=== PATIENT | male | born 1995 | race Caucasian/White ===

== ENCOUNTER 2020-07-03 20:11 | Observation (INO) ==
[2020-07-03] MEDS ORDERED: Tdap (Boostrix) Vaccine 0.5 ML SYRINGE IM ONE (20:52)
[2020-07-03 21:17] LABS: Basophils % 0.3 %; Eosinophils # 0.4 K/mcL (0.0-0.6); Eosinophils % 4.7 %; Hematocrit 40.2 % (37.5-50.1); Immature Granulocytes % 0.3 % (0-4); Lymphocytes % 26.1 %; Mean Corpuscular HGB Conc 32.3 g/dL (31.6-35.5); Mean Corpuscular Hemoglobin 29.4 pg (28.0-33.3); Mean Platelet Volume 9.3 fL (9.4-12.4); Monocytes # 0.7 K/mcL (0.0-1.3); Monocytes % 9.5 %; Neutrophils # 4.5 K/mcL (1.6-8.9); Platelet Count 231 K/mcL (140-400); Red Blood Count 4.42 M/mcL (4.19-5.50); Red Cell Distribution Width 11.9 % (11.5-14.5); Segmented Neutrophils % 59.1 %; White Blood Count 7.7 K/mcL (4.3-11.1)
[2020-07-03 21:39] LABS: Alanine Aminotransferase 286 Units/L (7-52); Albumin 4.1 g/dL (3.5-5.7); Albumin/Globulin Ratio 1.3 (1.1-2.2); Alkaline Phosphatase 124 Units/L (34-104); Aspartate Amino Transferase 194 Units/L (13-39); BUN/Creatinine Ratio 13 (6-26); Bilirubin,Direct 0.2 mg/dL (0.0-0.2); Bilirubin,Indirect 0.4 mg/dL (0.0-1.0); Bilirubin,Total 0.6 mg/dL (0.3-1.0); Blood Urea Nitrogen 10 mg/dL (6-20); C-Reactive Protein 42 mg/L (Less than 10); Calcium 9.1 mg/dL (8.6-10.3); Carbon Dioxide 31 mEq/L (23-29); Chloride 101 mEq/L (98-107); Globulin 3.2 g/dL (2.4-3.5); Glucose 83 mg/dL (70-105); Osmolality,Calculated 286 (280-300); Potassium 3.6 mEq/L (3.5-5.1); Sodium 139 mEq/L (136-145); Total Protein 7.3 g/dL (6.4-8.9); Troponin I < 0.03 ng/mL (< 0.04); Uric Acid 4.9 mg/dL (2.3-7.6); eGFR For African Americans > 60 (> 60); eGFR For Non-African Americans > 60 (> 60)
[2020-07-03] MEDS ORDERED: Isovue-370 500 ML BOTTLE IVP ONE (21:41)
[2020-07-03 21:53] LABS: Thyroid Stimulating Hormone 1.031 mcIU/mL (0.340-5.600)
[2020-07-03 22:50] LABS: Hepatitis B Surface Antigen Nonreactive (Nonreactive)
[2020-07-03 23:19] LABS: Hepatitis B Core IgM Nonreactive (Nonreactive)
[2020-07-03 23:20] LABS: Hepatitis A Antibody IgM Nonreactive (Nonreactive)
[2020-07-04] MEDS ORDERED: cefTRIAXone 1,000 MG in Water for inj. (sterile) 10 ML IVP ONE (00:28)
[2020-07-04] MEDS ORDERED: Furosemide 20 MG/2 ML VIAL IVP ONE ×2 (01:33→11:24)
[2020-07-04 01:53] LABS: Prothrombin Time 11.3 Seconds (9.4-12.1)
[2020-07-04 02:18] LABS: Bilirubin,Urine Negative (Negative); Blood,Urine Negative (Negative); Clarity,Urine Clear (Clear); Color,Urine Yellow (Yellow); Glucose,Urine (UA) Normal (Normal); Ketones,Urine Negative (Negative); Leukocyte Esterase,Urine Negative (Negative); Nitrite,Urine Negative (Negative); PH,Urine 6.5 pH Units (5.0-8.0); Protein,Urine Negative (Neg-Trace); Specific Gravity,Urine > 1.030 (1.010-1.025)
[2020-07-04 02:23] LABS: Hepatitis C Virus Antibody Reactive (Nonreactive)
[2020-07-04 02:30] LABS: Amphetamine Screen,Urine Positive ng/mL (Cutoff=1000); Barbiturate Screen,Urine Negative ng/mL (Cutoff=200); Benzodiazepines Screen,Urine Negative ng/mL (Cutoff=200); Cannabinoid Screen,Urine Positive ng/mL (Cutoff = 50); Cocaine Screen,Urine Negative ng/mL (Cutoff= 300); Opiate Screen,Urine Negative ng/mL (Cutoff=300); Phencyclidine Screen,Urine Negative ng/mL (Cutoff=25)
[2020-07-04] MEDS ORDERED: Naloxone 0.4 MG/ML INJ IVP PRN (03:58)
[2020-07-04] MEDS ORDERED: Perflutren Lipid Microsphere 1.3 ML in 0.9 % Sodium Chloride 8.7 ML IVP PRN (05:32)
[2020-07-04] MEDS ORDERED: Isovue-370 500 ML BOTTLE IVP ONE (05:35)
[2020-07-04 06:01] LABS: Hematocrit 37.7 % (37.5-50.1); Hemoglobin 12.4 g/dL (12.9-16.9); Mean Corpuscular HGB Conc 32.9 g/dL (31.6-35.5); Mean Corpuscular Volume 91.1 fL (83.0-100.0); Mean Platelet Volume 9.2 fL (9.4-12.4); Platelet Count 210 K/mcL (140-400); Red Blood Count 4.14 M/mcL (4.19-5.50)
[2020-07-04 07:25] LABS: Alanine Aminotransferase 279 Units/L (7-52); Albumin 3.5 g/dL (3.5-5.7); Albumin/Globulin Ratio 1.2 (1.1-2.2); Alkaline Phosphatase 118 Units/L (34-104); Aspartate Amino Transferase 202 Units/L (13-39); BUN/Creatinine Ratio 17 (6-26); Bilirubin,Total 0.3 mg/dL (0.3-1.0); Blood Urea Nitrogen 10 mg/dL (6-20); Calcium 8.7 mg/dL (8.6-10.3); Carbon Dioxide 29 mEq/L (23-29); Chloride 102 mEq/L (98-107); Glucose 93 mg/dL (70-105); Osmolality,Calculated 285 (280-300); Potassium 3.7 mEq/L (3.5-5.1); Sodium 138 mEq/L (136-145); Total Protein 6.5 g/dL (6.4-8.9); eGFR For African Americans > 60 (> 60); eGFR For Non-African Americans > 60 (> 60)
[2020-07-04] MEDS ORDERED: Furosemide 20 MG/2 ML VIAL IVP SCH (09:00)
[2020-07-04] MEDS: cephALEXin 500 MG CAPSULE PO SCH ×4 (11:58→20:48)
[2020-07-04] MEDS: *HR* Heparin 5,000 UNIT/ML VIAL SQ SCH (17:33)
[2020-07-05] MEDS ORDERED: Ibuprofen 400 MG TABLET PO ONE (06:16)
[2020-07-05] MEDS: *HR* Heparin 5,000 UNIT/ML VIAL SQ SCH (06:18)
[2020-07-05 06:43] LABS: Alanine Aminotransferase 331 Units/L (7-52); Albumin 4.1 g/dL (3.5-5.7); Albumin/Globulin Ratio 1.2 (1.1-2.2); Alkaline Phosphatase 131 Units/L (34-104); Aspartate Amino Transferase 218 Units/L (13-39); BUN/Creatinine Ratio 17 (6-26); Bilirubin,Total 0.5 mg/dL (0.3-1.0); Blood Urea Nitrogen 11 mg/dL (6-20); Calcium 9.6 mg/dL (8.6-10.3); Carbon Dioxide 27 mEq/L (23-29); Chloride 102 mEq/L (98-107); Globulin 3.3 g/dL (2.4-3.5); Glucose 90 mg/dL (70-105); Osmolality,Calculated 285 (280-300); Phosphorous 3.8 mg/dL (2.7-4.5); Potassium 3.9 mEq/L (3.5-5.1); Sodium 138 mEq/L (136-145); Total Protein 7.4 g/dL (6.4-8.9); eGFR For African Americans > 60 (> 60); eGFR For Non-African Americans > 60 (> 60)
[2020-07-05 06:47] VITALS: BP 120/72
[2020-07-05] MEDS ORDERED: Doxycycline 100 MG CAPSULE PO SCH (09:00)
== END 2020-07-05 09:34 | disposition left against medical advice (07) ==
LOC: EMEROOARM 20:11 → 3BNU 20:11 → SUATTDRO 07-04 02:11 → 3BNU 07-04 02:39
PROVIDERS: ADMIT Family Medicine; ATTEND Internal Medicine